=== PATIENT | female | born 1935 | race Hispanic/Latino ===

== ENCOUNTER 2017-06-16 11:59 | Emergency (ER) | payer MEDICARE ==
--- NOTE | 2017-06-16 12:19 | ED PDOC ---
HPI: Trauma/Fall - HPI Time Seen by Provider: 06/16/17 12:06 Chief Complaint (Nursing): Trauma Chief Complaint (Provider): Head injury History Per: Patient History/Exam Limitations: no limitations Onset/Duration Of Symptoms: Days (x2) Location Of Injury: Right: Head Associated Symptoms: denies: Dizziness, LOC Additional Complaint(s): An [place], an 82 year old female, with a past medical history of dementia presents to the ED with a injury to the right side of her head she sustained when she fell 2 days ago. Denies loss of consciousness, dizziness. Patient is currently complaining of a mild right sided headache. Denies nausea and vomiting. Of note: Patient is status post pacemaker insertion PMD: Kade Anders Past Medical History Reviewed: Historical Data, Nursing Documentation, Vital Signs Vital Signs: Last Vital Signs Temp 100.7 F H 06/16/17 12:05 Pulse 97 H 06/16/17 12:05 Resp 18 06/16/17 12:05 BP 139/81 06/16/17 12:05 Pulse Ox 99 06/16/17 12:23 - Medical History PMH: Dementia, Gastritis, HTN - Surgical History Surgical History: Pacemaker - Family History Family History: States: Unknown Family Hx - Social History Current smoker - smoking cessation education provided: No Ex-Smoker (has not smoked in the last 12 months): No Alcohol: None Drugs: Denies - Home Medications Home Medications: Ambulatory Orders Medication Instructions Recorded Non-Formulary 1 ea .ROUTE Q6 #1 ea 06/16/17 - Allergies Allergies/Adverse Reactions: Allergies Allergy/AdvReac Type Severity Reaction Status Date / Time No Known Allergies Allergy Verified 06/16/17 12:04 Review of Systems ROS Statement: Except As Marked, All Systems Reviewed And Found Negative Gastrointestinal: Negative for: Nausea, Vomiting Neurological: Positive for: Headache (right sided headache), Other (no loss of consciousness). Negative for: Dizziness Physical Exam - Reviewed Nursing Documentation Reviewed: Yes Vital Signs Reviewed: Yes - Physical Exam Appears: Positive for: Non-toxic, No Acute Distress Head Exam: Positive for: ATRAUMATIC, NORMAL INSPECTION, NORMOCEPHALIC Skin: Positive for: Normal Color, Warm, Dry. Negative for: Rash Eye Exam: Positive for: Normal appearance, EOMI, PERRL. Negative for: Nystagmus Neck: Positive for: Normal, Painless ROM, Supple Cardiovascular/Chest: Positive for: Regular Rate, Rhythm, Chest Non Tender. Negative for: Tachycardia Respiratory: Positive for: Normal Breath Sounds. Negative for: Rales, Rhonchi, Wheezing, Respiratory Distress Gastrointestinal/Abdominal: Positive for: Normal Exam, Bowel Sounds, Soft. Negative for: Tenderness, Guarding, Rebound Back: Positive for: Normal Inspection. Negative for: L CVA Tenderness, R CVA Tenderness Extremity: Positive for: Normal ROM. Negative for: Tenderness (no hip tenderness), Pedal Edema, Deformity (No deformity to the hip), Swelling Lymphatic: Positive for: Normal Exam. Negative for: Adenopathy Neurologic/Psych: Positive for: Alert, Oriented, Gait - ECG O2 Sat by Pulse Oximetry: 99 (RA) Pulse Ox Interpretation: Normal Medical Decision Making Medical Decision Makin Initial Impression 82 y/o female presenting with right sided headache Initial Plan: * CT Head w/o Contrast * Reevaluation CT not available and MRI not option due to pacemaker. No neuro deficits. Pt at baseline mental status. Family agreeable to DC and outpt CT head. Advised to return to ED if Neuro or mental status changes. Scribe Attestation Documented by Mihaela Gonzalez acting as a scribe for Nj Jesus MD. Provider Attestation All medical record entries made by the Scribe were at my direction and personally dictated by me. I have reviewed the chart and agree that the record accurately reflects my personal performance of the history, physical exam, medical decision making, and the department course for this patient. I have also personally directed, reviewed, and agree with the discharge instructions and disposition. Disposition - Clinical Impression Clinical Impression: Head injury - Patient ED Disposition Is Patient to be Admitted: No Counseled Patient/Family Regarding: Diagnosis, Need For Followup, Rx Given - Disposition Disposition: Routine/Home Disposition Time: 14:34 Condition: FAIR Prescriptions: Non-Formulary 1 ea .ROUTE Q6 #1 ea Instructions: Head Injury (ED) Forms: [employer] (Nicaraguan)
[2017-06-16 15:07] VITALS: BP 135/85; PULSE 84; RESP 16; TEMP 99.8; O2SAT 97
== END 2017-06-16 13:00 | disposition home or self-care (01) ==
LOC: H.ER 11:59
DX: S09.90XA Unspecified injury of head, initial encounter (principal); W19.XXXA Unspecified fall, initial encounter

== ENCOUNTER 2017-11-05 15:54 | Emergency (ER) | payer MEDICARE ==
[2017-11-05 16:47] VITALS: BP 146/84; PULSE 87; RESP 16; TEMP 97.9; O2SAT 96
--- NOTE | 2017-11-05 17:25 | ED PDOC ---
HPI: General Adult Time Seen by Provider: 11/05/17 16:47 Chief Complaint (Nursing): Abnormal Labs Chief Complaint (Provider): Abnormal Labs History Per: Patient History/Exam Limitations: no limitations Onset/Duration Of Symptoms: Days (x1) Current Symptoms Are (Timing): Still Present Additional Complaint(s): 82 year old female with medical history of polycystic kidney disease and COPD, referred to the emergency department by PMD for an evaluation of 5.8 potassium count seen on labs drawn on 10/31/17. Patient is asymptomatic and denied any chest pain or shortness of breath. PMD: Kade Christopher MD Past Medical History Reviewed: Historical Data, Nursing Documentation, Vital Signs Vital Signs: Last Vital Signs Temp 97.9 F 11/05/17 16:39 Pulse 87 11/05/17 16:39 Resp 16 11/05/17 16:39 BP 146/84 11/05/17 16:39 Pulse Ox 96 11/05/17 17:33 - Medical History PMH: COPD, Dementia, Gastritis, HTN, Chronic Kidney Disease (polycystic) - Surgical History Surgical History: Pacemaker - Family History Family History: States: Unknown Family Hx - Social History Current smoker - smoking cessation education provided: No Ex-Smoker (has not smoked in the last 12 months): No Alcohol: None Drugs: Denies - Home Medications Home Medications: Ambulatory Orders Medication Instructions Recorded Amitriptyline HCl [Amitriptyline 100 mg PO HS 07/12/17 HCl] Ibandronate Sodium [Boniva] 150 mg PO ASDIR 07/12/17 Lorazepam [Ativan] 0.5 mg PO BID PRN 07/12/17 Losartan Potassium [Losartan 50 mg PO DAILY 07/12/17 Potassium] Memantine HCl [Memantine HCl] 10 mg PO DAILY 07/12/17 Metoprolol Tartrate [Lopressor] 25 mg PO BID 07/12/17 - Allergies Allergies/Adverse Reactions: Allergies Allergy/AdvReac Type Severity Reaction Status Date / Time No Known Allergies Allergy Verified 11/05/17 16:38 Review of Systems ROS Statement: Except As Marked, All Systems Reviewed And Found Negative Cardiovascular: Negative for: Chest Pain Respiratory: Negative for: Shortness of Breath Physical Exam - Reviewed Nursing Documentation Reviewed: Yes Vital Signs Reviewed: Yes - Physical Exam Appears: Positive for: Well, Non-toxic, No Acute Distress Skin: Positive for: Normal Color Cardiovascular/Chest: Positive for: Regular Rate, Rhythm, Chest Non Tender. Negative for: Murmur Respiratory: Positive for: Normal Breath Sounds. Negative for: Decreased Breath Sounds, Wheezing, Respiratory Distress Extremity: Positive for: Normal ROM (upper/lower). Negative for: Pedal Edema ( bilateral) Neurologic/Psych: Positive for: Alert (x3), Oriented - Laboratory Results Result Diagrams: 11/05/17 17:17 11/05/17 17:17 - ECG O2 Sat by Pulse Oximetry: 96 (RA) Pulse Ox Interpretation: Normal Medical Decision Making Medical Decision Making: Initial Impression: Abnormal Labs Initial Plan: * EKG * CMP * CBC Scribe Attestation: Documented by Nasra Montemayor, acting as a scribe for Nj Jesus MD. Provider Scribe Attestation: All medical record entries made by the Scribe were at my direction and personally dictated by me. I have reviewed the chart and agree that the record accurately reflects my personal performance of the history, physical exam, medical decision making, and the department course for this patient. I have also personally directed, reviewed, and agree with the discharge instructions and disposition. Disposition - Clinical Impression Clinical Impression: Polycystic kidney - Patient ED Disposition Is Patient to be Admitted: No Counseled Patient/Family Regarding: Studies Performed, Diagnosis, Need For Followup - Disposition Disposition: Routine/Home Disposition Time: 17:41 Condition: FAIR Instructions: Polycystic Kidney Disease Forms: [employer] (Georgian) Print Language: SINHALA
[2017-11-05 17:27] LABS: BASO # 0.1 K/uL (0.0-0.2); EOS # 0.3 K/uL (0.0-0.7); EOS % 4.2 % (0.0-4.0); HEMOGLOBIN 12.5 g/dL (12.0-16.0); LYMPH # 1.9 K/uL (1.0-4.3); MEAN CELL VOLUME 88.6 fl (81.0-99.0); MEAN CORPUSCULAR HEMOGLOBIN 28.7 pg (27.0-31.0); MEAN CORPUSCULAR HGB CONC 32.4 g/dL (33.0-37.0); MEAN PLATELET VOLUME 8.6 fl (7.2-11.7); MONO # 0.7 K/uL (0.0-0.8); MONO % 10.6 % (0.0-10.0); NEUT # 3.7 K/uL (1.8-7.0); NEUT % 56.2 % (50.0-75.0); NRBC % 0.2 % (0.0-0.0); RBC 4.34 Mil/uL (3.80-5.20); RED CELL DISTRIBUTION WIDTH 13.9 % (11.5-14.5); WHITE BLOOD COUNT 6.6 K/uL (4.8-10.8)
[2017-11-05 17:31] LABS: ALB/GLOB RATIO 1.5 (1.0-2.1); ALT/SGPT 29 U/L (9-52); AST/SGOT 30 U/L (14-36); BLOOD UREA NITROGEN 29 mg/dl (7-17); CALCIUM 9.7 mg/dL (8.4-10.2); GFR AFRICAN-AMERICAN > 60; GFR NON-AFRICAN AMERICAN 60
--- NOTE | 2017-11-06 11:48 | CARD ---
APPROVED REPORT EKG Measurement Heart [id number] <Conclusion> Atrial-paced rhythm Abnormal ECG
== END 2017-11-05 18:14 | disposition home or self-care (01) ==
LOC: H.ER 15:54
DX: Q61.3 Polycystic kidney, unspecified (principal); I10 Essential (primary) hypertension; J44.9 Chronic obstructive pulmonary disease, unspecified